=== PATIENT | female | born 1995 | race African-American/Black ===

== ENCOUNTER 2025-07-15 21:53 | Emergency (ER) | payer MEDICAID ==
[~2025-07-15] VITALS: Ht 167.6 cm; Wt 55.0 kg
[2025-07-15 22:03] VITALS: O2SAT 98
[2025-07-15 23:49] LABS: BASOPHILS % 0.6 % (0.0-2.0); EOSINOPHILS % 0.1 % (0.0-5.0); HEMATOCRIT. 40.1 % (36.0-48.0); HEMOGLOBIN. 13.7 g/dL (12.0-16.0); LYMPHOCYTES % 20.1 % (20.0-50.0); MEAN PLATELET VOLUME 7.2 fl (7.4-10.4); MONOCYTES % 7.4 % (2.0-8.0); NEUTROPHILS % 71.8 % (40.0-76.0); PLATELET 322 x1000/uL (130-400); RED BLOOD CELL COUNT 4.64 mill/uL (4.2-5.4); RED CELL DISTRIBUTION WIDTH 14.0 % (11.6-14.6)
[2025-07-15] MEDS: SODIUM CHLORIDE 0.9% 1,000 ML IV ONE (23:54)
[2025-07-16 00:01] LABS: CREATININE 0.9 mg/dL (0.6-1.0); UREA NITROGEN BLOOD < 5 mg/dL (9-23)
[2025-07-16 00:03] LABS: ASPARTATE AMINOTRANSFERASE 33 IU/L (<34); BILIRUBIN DIRECT 0.2 mg/dL (<=3.0)
[2025-07-16 00:04] LABS: BILIRUBIN TOTAL 0.7 mg/dL (0.1-1.0); PROTEIN TOTAL 8.2 g/dL (6.0-8.3)
[2025-07-16 00:13] LABS: HCG SCREEN NEGATIVE
[2025-07-16] MEDS: POTASSIUM CHLORIDE 20MEQ TABLET SR PO ONE (00:39)
[2025-07-16 00:48] VITALS: BP 119/86; PULSE 85; RESP 17; TEMP 37; O2SAT 100
== END 2025-07-16 01:02 | disposition home or self-care (01) ==
LOC: ER 21:53
DX: F15.10 Other stimulant abuse, uncomplicated (principal); E87.6 Hypokalemia; Z88.1 Allergy status to other antibiotic agents
CPT/HCPCS: 80076; 80048; 80320; 84703; 85025; 36415; 93005; 96360; 99284; J7030; G0480